=== PATIENT | female | born 1985 | race Caucasian/White ===

== ENCOUNTER 2020-02-12 15:49 | Emergency (ER) | payer OTHER, SELFPAY ==
--- NOTE | ~2020-02-12 | CT_ITS ---
EXAMINATION: CT abdomen pelvis w con DATE: 02/12/2020 18:26 INDICATION: Crohn's disease presenting with fatigue, fever, nausea, vomiting and lower abdominal pain . TECHNIQUE: Computed tomography (CT) of the abdomen and pelvis was performed . with 100 mL Omnipaque-3 50 intravenous contrast. Automated exposure control and iterative reconstruction technique were emplo yed. The dose-length product was 202.52 mGy-cm. COMPARISON: None FINDINGS: Lung bases are clear. Heart size is normal. No pericardial or pleural effusion. Liver, gallbladder, s pleen, pancreas, bilateral adrenal glands and kidneys are normal. Appendix is not visualized and ther e appears be a suture line at the tip of the cecum suggesting prior appendectomy. There is some edema tous wall thickening along the sigmoid colon and rectum consistent with distal colitis. No bowel obst ruction. No abscess or free intraperineal gas or fluid. Bladder, uterus and bilateral adnexa are unre markable. No pathologically enlarged abdominal or pelvic lymphadenopathy. Mild lumbar levocurvature. IMPRESSION: 1. Wall thickening along the sigmoid colon and rectum consistent with colitis most likely related to patient's known Crohn's disease with differential including infectious colitis or less likely ischemi a. Reviewed, dictated and finalized at location H. [facility] IMPRESSION: 1. Wall thickening along the sigmoid colon and rectum consistent with colitis m ost likely related to patient's known Crohn's disease with differential includi ng infectious colitis or less likely ischemia.
[2020-02-12 15:53] VITALS: BP 136/81; PULSE 105; RESP 16; TEMP 37.1; O2SAT 100
--- NOTE | 2020-02-12 16:15 | PC.NURSE ---
patient brought back to ED room 6 with c/o abdomen pain. see triage notes. this RN to room. advised patient we do need a urine specimen. specimen cup given. patient verbalized 3 times that she needs pain meds. assessments documented.
--- NOTE | 2020-02-12 16:40 | PC.NURSE ---
back on stretcher. refresh technician in room. labs drawn. UA collected. will run . alert. oriented. appears comfortable.
[2020-02-12 16:48] LABS: Basophils Absolute Auto 0.1 K/mm3 (0.0-0.1); Basophils Percent Auto 0.6 % (0.2-1.2); Eosinophils Absolute Auto 0.1 K/mm3 (0-0.3); Eosinophils Percent Auto 1.4 % (0-4.4); Hematocrit 46.9 % (37.0-47.0); Hemoglobin 15.6 g/dL (12.0-15.0); Immature Granulocyte Absolute 0.02 K/mm3 (0.00-0.031); Immature Granulocyte Percent A 0.2 % (0-0.5); Lymphocytes Absolute Auto 2.45 K/mm3 (0.9-3.2); Lymphocytes Percent Auto 26.4 % (18.3-44.2); Mean Corpuscular HGB Conc 33.3 g/dl (32-36); Mean Corpuscular Hemoglobin 31.3 pg (26-34); Mean Corpuscular Volume 94.2 fl (80-100); Mean Platelet Volume 9.3 fl (7.4-10.4); Monocytes Absolute Auto 0.6 K/mm3 (0.1-0.6); Monocytes Percent Auto 6.8 % (2.6-8.5); Neutrophils Percent Auto 64.6 % (45.5-73.1); Platelet Count Result 348 k/mm3 (150-375); Red Blood Count 4.98 M/mm3 (4.2-5.4); Red Cell Distribution Width 13.9 % (11.5-14.5); White Blood Count 9.3 K/mm3 (4.5-10.0)
[2020-02-12 16:52] LABS: Add Urine Microscopic? YES; Amorphous Sediment Urine Moderate; Appearance Urine Cloudy (Clear); Bilirubin Urine Negative (Negative); Blood Urine Negative (Negative); Color Urine Yellow (Yellow); Glucose Urine UA Negative (Negative); Ketones Urine Negative (Negative); Leukocyte Esterase Ur Negative LEU/UL (Negative); Mucus Urine Rare /lpf; Nitrate Urine Negative (Negative); Protein Urine Negative (Negative); RBC Urine 0-2 /hpf (0-2); Specific Grav Ur 1.017 (1.001-1.035); Squamous Epithelial Cell Urine Many /hpf (Few); Urobilinogen Urine Negative mg/dL (<2.0); WBC Urine 0-3 /hpf
[2020-02-12 17:07] LABS: Alanine Aminotransferase 20 U/L (4-35); Albumin Level 4.7 g/dL (3.5-5.1); Alkaline Phosphatase 63 U/L (38-126); Anion Gap 10 mmol/L (8-16); Aspartate Amino Transferase 22 U/L (14-36); Bilirubin,Total 0.9 mg/dL (0.2-1.3); Blood Urea Nitrogen 15 mg/dL (7-17); Calcium 9.6 mg/dL (8.4-10.2); Carbon Dioxide 27 mmol/L (22-30); Chloride 106 mmol/L (98-107); Estimated CRCL calculation 70 ml/min; Estimated Glomerular Filt Rate > 60; Glucose 66 mg/dL (65-105); Lipase 277 U/L (23-300); Potassium 3.9 mmol/L (3.4-5.0); Sodium 143 mmol/L (137-145)
--- NOTE | 2020-02-12 17:08 | ED.ABDPAIN ---
HPI - Abdominal Pain General Chief Complaint: Abdominal Pain <Migue Capellan - Last Filed: 02/12/20 17:09> Stated Complaint: N/V HX OF CHRONS' <Migue Capellan - Last Filed: 02/12/20 17:09> Time Seen by Provider: 02/12/20 16:06 <Migue Capellan - Last Filed: 02/12/20 17:09> Source: RN notes reviewed <Migue Capellan - Last Filed: 02/12/20 17:09> History of Present Illness HPI narrative: Patient presents emergency department from home for abdominal pain. Patient states symptoms began 2 days ago. Pain is located in the bilateral lower abdomen is described as sharp and stabbing does not radiate associate with nausea and without vomiting. Denies any diarrhea. States she has had a subjective fever with last fever 3 days ago. Patient does have a history of Crohn's disease but does not currently see any GI specialist and is on no medication. She denies any chest pain shortness of breath or any other symptoms <Migue Capellan Last Filed: 02/12/20 17:09> Related Data Allergies/Adverse Reactions: Allergies Allergy/AdvReac Type Severity Reaction Status Date / Time lactose Allergy Unknown Verified 04/03/18 21:43 <Migue Capellan Last Filed: 02/12/20 17:09> Review of Systems Review of Systems: Narrative: Gen.: Denies fevers or chills ENT: Denies congestion Respiratory: Denies shortness of breath or cough CV: Denies chest pain or palpitations GI: See HPI denies burning, urgency, frequency or hematuria Musculoskeletal: Denies back pain or muscle pain Neuro: Denies numbness, tingling, weakness or focal weakness Skin: Denies rash Except as documented, all other systems reviewed and negative <Migue Capellan DO - Last Filed: 02/12/20 17:09> PMFSH Past Medical History Medical History: Medical History (Updated 02/12/20 @ 20:22 by Thiago Dudley MD) Crohn's disease <Migue Capellan DO - Last Filed: 02/12/20 17:09> Social History Social History: Social History (Updated 02/12/20 @ 17:09 by Migue Capellan DO) Smoking status: Never smoker Gender identity (if verbalized by the patient): Female <Migue Capellan DO - Last Filed: 02/12/20 17:09> Exam Narrative: Exam Narrative: APPEARANCE: No acute distress, nontoxic, resting in bed HEENT: Normocephalic, atraumatic, OMM RESPIRATORY: No respiratory distress, clear to auscultation bilaterally with no rhonchi wheezing or rales CARDIOVASCULAR: RRR s murmur ABDOMINAL: Soft, nondistended, tender palpation right lower quadrant left lower quadrant no tenderness right upper quadrant left upper quadrant no rebound or guarding MUSCULOSKELETAl: Moves all extremities. No clubbing, cyanosis or edema. NEURO: Awake and alert. Following commands, speech normal, no focal deficits SKIN:: Warm, dry. Normal Color PSYCHIATRIC: Normal affect/mood <Migue Capellan DO - Last Filed: 02/12/20 17:09> Course Course Emergency Course: Patient is feeling better CT scan showed evidence of mild colitis patient will be started on Cipro and Flagyl as well as a short course of steroids. Patient was given information for follow-up with a primary care physician <Thiago Dudley MD - Last Filed: 02/12/20 20:28> Vital Signs Vital signs: Vital Signs Temperature 37.1 C 02/12/20 15:53 Pulse Rate 105 H 02/12/20 15:53 Respiratory Rate 16 02/12/20 15:53 Blood Pressure 136/81 02/12/20 15:53 Pulse Oximetry 100 02/12/20 15:53 Temperature 37.1 C 02/12/20 15:53 Pulse Rate 105 H 02/12/20 15:53 Respiratory Rate 16 02/12/20 15:53 Blood Pressure 136/81 02/12/20 15:53 Pulse Oximetry 100 02/12/20 15:53 <Migue Capellan DO - Last Filed: 02/12/20 17:09> Vital Signs Temperature 37.1 C 02/12/20 15:53 Pulse Rate 105 H 02/12/20 15:53 Respiratory Rate 16 02/12/20 15:53 Blood Pressure 136/81 02/12/20 15:53 Pulse Oximetry 100 02/12/20
[2020-02-12] MEDS: MORPHINE SULFATE (*CRX) 4 MG/ML INJ IV PUSH (17:32)
[2020-02-12] MEDS: ONDANSETRON INJ 4 MG/2 ML VIAL IV PUSH (17:32)
[2020-02-12] MEDS: SODIUM CHLORIDE 0.9% IV 1,000 ML 999 ML IV CONT (17:32)
--- NOTE | 2020-02-12 19:35 | PC.NURSE ---
resting on stretcher. watching TV. ice chips given. wants more pain meds. all tests resulted. waiting for further orders from provider. has call light in reach.
[2020-02-12 20:47] VITALS: BP 136/82; PULSE 82; RESP 16; O2SAT 98
== END 2020-02-12 20:48 | disposition home or self-care (01) ==
PROVIDERS: Emergency Provider Emergency Medicine
DX: K52.9 Noninfective gastroenteritis and colitis, unspecified (principal); K50.90 Crohn's disease, unspecified, without complications
CPT/HCPCS: 36415; 74177; 80053; 81001; 81025; 83690; 85025; 96361; 96374; 96375; 99284; J2270; J2405; J7030; Q9967

== ENCOUNTER 2021-06-17 05:54 | Inpatient (IN) | payer OTHER, SELFPAY ==
--- NOTE | ~2021-06-17 | MR_ITS ---
EXAMINATION: MR brain/brain stem wo/w con EXAM DATE: 06/17/2021 16:30 INDICATION: Seizure. TECHNIQUE: Magnetic resonance imaging (MRI) of the brain/brain stem obtained without contrast. Sagit amor T1, axial diffusion, gradient echo (T2*), T1, T2, FLAIR sequences obtained. Patient was then inj ected with 10 cc intravenous Multihance contrast. Seizure protocol was utilized including high-resolu tion coronal images through the hippocampi. Axial postcontrast T1 weighted sequences obtained. Patie nt vomited after contrast injection; coronal post contrast images not obtained. Correlation was made with head CT from earlier same date. FINDINGS: The hippocampi are symmetric and are without signal abnormality identified. There are no g ray matter heterotopias identified or evidence of cortical dysplasia. There are no areas of restricted diffusion to suggest acute infarction. There is no acute hemorrhage seen on the T2*, a hemosiderin sensitive sequence. No intraparenchymal brain mass. The ventricles a re normal in size. There are no extra-axial collections. Flow voids are seen in the cerebral arteri es on the T2-weighted sequences consistent with their expected patency. The orbits are unremarkable. Soft tissue is unremarkable. IMPRESSION: Unremarkable brain MRI examination. Reviewed, dictated and finalized at location G.
--- NOTE | ~2021-06-17 | CT_ITS ---
EXAMINATION: CT cervical spine wo con DATE: 06/17/2021 07:02 INDICATION: Neck pain after seizure TECHNIQUE: Computed tomography (CT) of the cervical spine was performed without intravenous contrast. The dose-length product was 145 mGy-cm. Automated exposure control and iterative reconstruction tech [employer] were employed. COMPARISON: No prior studies for comparison. FINDINGS: No acute fracture, subluxation or dislocation. Normal cervical alignment. Vertebral body an d disc heights are preserved. Craniovertebral junction is normal. No evidence for perched facet. Spin ous processes are normal. No significant paraspinal soft tissue abnormality. IMPRESSION: 1. No acute abnormality of the cervical spine. Reviewed, dictated and finalized at location A.
--- NOTE | ~2021-06-17 | XR_ITS ---
XR abdomen NG/feed tube insert DATE: 06/18/2021 02:44 INDICATION: Evaluate NG tube position TECHNIQUE: Portable AP view on 06/18/2021 at 0235 hours COMPARISON: None FINDINGS: NG tube coiled once in stomach, distal tip directed toward the esophagogastric junction, th e proximal side-port 16 cm beyond the diaphragmatic hiatus. Nonspecific bowel gas pattern. No intraperitoneal free air is evident. The lung bases are clear. Heart size appears normal. IMPRESSION: NG tube in stomach Reviewed, dictated and finalized at Location A. Reviewed, dictated and finalized at location A. IMPRESSION: NG tube in stomach
--- NOTE | ~2021-06-17 | CT_ITS ---
EXAMINATION: CT abdomen pelvis w con EXAM DATE: 06/17/2021 15:38 INDICATION: Crohn's disease. TECHNIQUE: Spiral CT of the abdomen and pelvis was performed following intravenous injection of 100 m L Omnipaque 350. Axial, coronal and sagittal images of the abdomen and pelvis were reviewed. The do se-length product (DLP) for this examination was 228.52 mGy-cm. The exposure was tailored according to patient size (auto mA exposure control), and iterative reconstruction (ASIR) was used as additiona l dose reduction technique. There is no prior study for comparison. FINDINGS: There is moderately distended stomach with large amount of fluid. The duodenum is severely distended and there is moderately distended jejunum without wall thickening or pneumatosis. The ileum is normal in caliber and unremarkable. No definite discrete transition point, appearance suggests il eus. No evidence of appendicitis. The liver, spleen, adrenal glands and pancreas are unremarkable. Gallbladder is unremarkable. No bi liary obstruction. Portal and splenic veins are patent. Kidneys enhance symmetrically. There is no hydronephrosis. The uterus and ovaries are unremarkable, no adnexal mass. The bladder is distende d but otherwise unremarkable. There is no retroperitoneal or pelvic lymphadenopathy. The heart is n ormal in size. There are no pericardial or pleural effusions. The lung bases are unremarkable. The bones are unremarkable. IMPRESSION: Distended stomach, duodenum and jejunum without discrete transition point. Appearance sug gests ileus. Unremarkable ileum. Expected amount of colonic stool. Reviewed, dictated and finalized at location G. IMPRESSION: Distended stomach, duodenum and jejunum without discrete transition point. Appearance suggests ileus. Unremarkable ileum. Expected amount of colon ic stool.
--- NOTE | ~2021-06-17 | CT_ITS ---
EXAMINATION: CT BRAIN W/O DATE: 06/17/2021 07:02 INDICATION: Seizure. TECHNIQUE: Computed tomography (CT) of the head was performed without intravenous contrast. The dose- length product was 605.33 mGy-cm. Automated exposure control and iterative reconstruction technique w ere employed. COMPARISON: No prior studies for comparison. FINDINGS: Normal brain parenchymal volume for age. Normal bishop-white differentiation. No acute intrac ranial hemorrhage, infarction, mass or mass effect. No ventriculomegaly or midline shift. Midline sagittal images demonstrate a normal corpus callosum, c raniovertebral junction and sella turcica. Basilar cisterns are patent. Paranasal sinuses and mastoids are pneumatized. No depressed skull fractures. IMPRESSION: 1. No acute intracranial abnormality. Reviewed, dictated and finalized at location A.
--- NOTE | ~2021-06-17 | XR_ITS ---
EXAMINATION: XR chest 1V portable 06/17/2021 08:19 INDICATION: Multiple seizures PROCEDURE: AP portable chest COMPARISON: No prior studies for comparison. FINDINGS: The lungs are clear. The cardiomediastinal silhouette is within normal limits. There are no pleural effusions. There is no pneumothorax suspected. IMPRESSION: 1: NO ACUTE CARDIOPULMONARY DISEASE. Reviewed, dictated and finalized at location A.
--- NOTE | ~2021-06-17 | XR_ITS ---
EXAMINATION: XR sm bowel follow through DATE: 06/19/2021 11:02 INDICATION: Abdominal pain, nausea and vomiting TECHNIQUE: Tool Mechanic radiograph(s) of the abdomen was/were obtained. Oral contrast was administered, and sequential radiographs of the abdomen were obtained until oral contrast was noted to be in the proxi mal colon. Spot fluoroscopic images of the small bowel were obtained. Fluoroscopy exposure time was 0 .6 minutes. Total of 3 overhead radiographs and 7 fluoroscopic spot images were recorded. COMPARISON: CT dated 06/17/2021 and 02/12/2020 FINDINGS: Transit time from the stomach to proximal colon was approximately 3 minutes. There is dilation of the duodenum which extends to the midline there is transition to normal caliber. There is normal caliber and mucosal fold pattern throughout the more distal small bowel. Terminal ileum is normal. IMPRESSION: 1. Dilation of the duodenum with transition point as evidenced on CT at the midline where it passes b etween the aorta and superior mesenteric artery without delayed passage of contrast suggesting possib le SMA syndrome with chronic low grade obstruction. Reviewed, dictated and finalized at location A. IMPRESSION: 1. Dilation of the duodenum with transition point as evidenced on CT at the mid line where it passes between the aorta and superior mesenteric artery without d elayed passage of contrast suggesting possible SMA syndrome with chronic low gr sona obstruction.
[2021-06-17 06:02] VITALS: BP 119/81; PULSE 72; RESP 16; TEMP 36.6; O2SAT 99
[2021-06-17 06:11] VITALS: PULSE 72; O2SAT 99
[2021-06-17 06:12] VITALS: O2SAT 99
--- NOTE | 2021-06-17 06:43 | PC.NURSE ---
patient refused test.
[2021-06-17 06:46] LABS: Basophils Absolute Auto 0.1 K/mm3 (0.0-0.1); Basophils Percent Auto 0.7 % (0.2-1.2); Hematocrit 47.4 % (37.0-47.0); Hemoglobin 16.4 g/dL (12.0-15.0); Immature Granulocyte Absolute 0.02 K/mm3 (0.00-0.031); Immature Granulocyte Percent A 0.2 % (0-0.5); Lymphocytes Absolute Auto 3.12 K/mm3 (0.9-3.2); Lymphocytes Percent Auto 33.8 % (18.3-44.2); Mean Corpuscular HGB Conc 34.6 g/dl (32-36); Mean Corpuscular Hemoglobin 30.7 pg (26-34); Mean Corpuscular Volume 88.6 fl (80-100); Mean Platelet Volume 9.4 fl (7.4-10.4); Monocytes Absolute Auto 0.6 K/mm3 (0.1-0.6); Monocytes Percent Auto 6.9 % (2.6-8.5); Neutrophils Absolute Auto 5.4 K/mm3 (1.3-6.7); Neutrophils Percent Auto 58.4 % (45.5-73.1); Platelet Count Result 375 k/mm3 (150-375); Red Blood Count 5.35 M/mm3 (4.2-5.4); Red Cell Distribution Width 13.4 % (11.5-14.5); White Blood Count 9.2 K/mm3 (4.5-10.0)
--- NOTE | 2021-06-17 06:47 | PC.NURSE ---
Patient went to CT scan at this time.
[2021-06-17 06:58] LABS: Alanine Aminotransferase 16 U/L (4-35); Albumin Level 5.1 g/dL (3.5-5.1); Alkaline Phosphatase 75 U/L (38-126); Anion Gap 13 mmol/L (8-16); Aspartate Amino Transferase 30 U/L (14-36); Bilirubin,Total 1.6 mg/dL (0.2-1.3); Blood Urea Nitrogen 17 mg/dL (7-17); Calcium 9.7 mg/dL (8.4-10.2); Carbon Dioxide 29 mmol/L (22-30); Chloride 102 mmol/L (98-107); Estimated Glomerular Filt Rate > 60; Glucose 117 mg/dL (65-110); Potassium 3.4 mmol/L (3.4-5.0); Sodium 144 mmol/L (137-145)
--- NOTE | 2021-06-17 07:32 | ED.SEIZURE ---
HPI - Seizure General Chief Complaint: Seizure Stated Complaint: multiple seizures Time Seen by Provider: 06/17/21 06:21 Source: patient Mode of arrival: EMS Limitations: no limitations History of Present Illness HPI Narrative: Patient is a 35-year-old female complaining of multiple seizure at home that started last night. Patient states that she did hit her head on the floor when she had her seizure. Patient also complaining of neck pain, mild, dull, aching, worse with movement. Patient states that she has been off her seizure medication for quite some time because I cannot afford it . But patient admits to having Medicaid but now states that she does not have a ride to get to the pharmacy. Patient admits to smoking and ask how she gets her cigarettes, she claims that my dad gets it for me , I asked why her father cannot take her to the pharmacy or pick it up for her to get her seizure medication, and her reply is it is complicated . Patient also complaining of nausea. Patient denies any chest pain, shortness of breath, abdominal pain, back pain, or any extremity pain/injury. Related Data Allergies Allergy/AdvReac Type Severity Reaction Status Date / Time lactose Allergy Unknown Verified 04/03/18 21:43 Review of Systems Review of Systems: All systems reviewed & are unremarkable except as noted in HPI and below Constitutional: Constitutional: Denies body ache(s), Denies chills, Denies excessive sweating, Denies fatigue, Denies fever(s), Denies headache(s), Denies lethargy, Denies malaise, Denies weakness and Denies weight loss Eyes: Eyes: Denies blurry vision, Denies change in vision and Denies loss of vision ENT: Denies dizziness, Denies ear discharge, Denies headache(s), Denies lip swelling, Denies epistaxis, Denies nasal congestion, Denies throat swelling and Denies tongue swelling Cardiovascular: Cardiovascular: Denies chest pain, Denies chest pain at rest, Denies chest pain with activity, Denies diaphoresis, Denies rapid heart rate, Denies edema, Denies irregular heart rhythm, Denies lightheadedness, Denies palpitations, Denies dyspnea and Denies dyspnea on exertion Respiratory: Respiratory: Denies chest congestion, Denies cough, Denies hemoptysis, Denies dyspnea and Denies dyspnea on exertion Gastrointestinal: Gastrointestinal: Denies abdominal pain, Denies melena, Denies hematochezia, Denies diarrhea and Denies hematemesis Musculoskeletal: Musculoskeletal: Denies abnormal gait, Denies deformity, Denies joint swelling, Denies limited range of motion, Denies neck pain and Denies numbness Neurologic: Denies Abnormal speech present, Denies abnormal gait, Denies confusion, Denies dizziness, Denies focal weakness, Denies loss of vision, Denies numbness, Denies Other visual disturbances, Denies Sensory deficit (Neuro) and Denies weakness Psychiatric: Psychiatric: Denies confusion, Denies depression, Denies auditory hallucinations, Denies homicidal ideation and Denies suicidal ideation Endocrine: Endocrine: Denies cold intolerance, Denies excessive sweating, Denies fatigue, Denies heat intolerance and Denies palpitations Hematologic/Lymphatic: Hematologic/Lymphatic: Denies easy bleeding and Denies easy bruising Allergic/Immunologic: Allergic/Immunologic: Denies lip swelling, Denies throat swelling and Denies tongue swelling PMF Past Medical History Medical History (Updated 06/17/21 @ 07:46 by Migue Cook MD) Crohn's disease Social History Social History (Updated 02/12/20 @ 17:09 by Migue Capellan DO) Smoking status: Never smoker Gender identity (if verbalized by the patient): Female Comments Past medical history: Seizure Exam Const: General: cooperative, healthy appearing, comfortable, no acute distress, well developed, alert and awake; No confusion Orientation/consciousness: oriented to person, oriented to place, oriented to time, patient oriented x3 and No confusion Limitations: no limitations H
[2021-06-17] MEDS: SODIUM CHLORIDE 0.9% IV 1,000 ML 999 ML IV CONT (07:58)
[2021-06-17] MEDS: levETIRAcetam 1000MG/NACL100ML 1,000 MG/100 ML BAG 400 MG IVPB (07:58)
[2021-06-17] MEDS: PROMETHAZINE HCL 25 MG/ML AMPUL 12.5 MG IV PUSH (07:58)
[2021-06-17 08:53] LABS: SARS-CoV-2 RNA PCR Negative
[2021-06-17 10:21] VITALS: BMI 20.1
[2021-06-17] MEDS: ONDANSETRON INJ 4 MG/2 ML VIAL IV PUSH ×2 (12:53→23:17)
[2021-06-17] MEDS: LACTATED RINGERS 1,000 ML 125 ML IV CONT (12:54)
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
[2021-06-17 13:10] VITALS: BP 119/73; PULSE 60; RESP 20; TEMP 36.6; O2SAT 100
[2021-06-17 14:20] LABS: Bilirubin Indirect 1.7 mg/dL (0-1.1); CRP < 0.5 mg/dL (<1.0)
[2021-06-17 14:32] LABS: Beta HCG Quantitative < 2.39 mIU/ML
[2021-06-17 14:36] LABS: Erythrocyte Sedimentation Rate 5 mm/hr (0-20)
[2021-06-17 14:56] LABS: HIV 1/2 Ab P24 Ag Result Negative (Negative)
[2021-06-17 15:02] LABS: HAV RESULT Negative (Negative); Hepatitis B Core IgM Result Negative (Negative)
[2021-06-17 15:13] LABS: Hepatitis C Virus Antibody Negative (Negative)
[2021-06-17 16:44] LABS: Hepatitis B Surface Antigen 0.95 S/C
[2021-06-17 16:45] LABS: Hepatitis B Surface Antigen Negative (Negative)
[2021-06-17] MEDS: IBUPROFEN 600 MG TABLET PO (16:48)
[2021-06-17 17:26] LABS: Add Urine Microscopic? YES; Appearance Urine Cloudy (Clear); Bacteria Urine Trace /hpf; Bilirubin Urine Negative (Negative); Blood Urine Negative (Negative); Color Urine Yellow (Yellow); Glucose Urine UA Negative (Negative); Ketones Urine Trace mg/dL (Negative); Leukocyte Esterase Ur Negative LEU/UL (Negative); Mucus Urine Rare /lpf; Nitrate Urine Negative (Negative); Protein Urine 1+ mg/dL (Negative); RBC Urine 21-50 /hpf (0-2); Squamous Epithelial Cell Urine Few /hpf (Few); Urobilinogen Urine Negative mg/dL (<2.0); WBC Urine 0-3 /hpf
[2021-06-17 17:28] LABS: Specific Grav Ur 1.057 (1.001-1.035)
[2021-06-17 17:54] LABS: Barbiturate Screen Urine Negative (Negative); Benzodiazepines Screen Urine Negative (Negative)
[2021-06-17 17:59] LABS: Amphetamine Screen Urine Negative (Negative); Cannabinoid Screen Urine Negative (Negative); Cocaine Screen Urine Negative (Negative); Methadone Screen Urine Negative (Negative); Opiate Screen Urine Negative (Negative); Phencyclidine Screen Urine Negative (Negative)
[2021-06-17] MEDS: PANTOPRAZOLE SODIUM IV 40 MG VIAL IV PUSH (20:30)
[2021-06-17] MEDS: diphenhydrAMINE HCl INJ 50 MG/ML VIAL 25 MG IV PUSH (20:30)
[2021-06-17] MEDS: LORazepam INJ (*CRX) 2 MG/ML VIAL 0.5 MG IV PUSH (20:34)
[2021-06-17] MEDS: levETIRAcetam 500MG/NACL 100ML 500 MG/100 ML BAG 400 MG IVPB (20:34)
[2021-06-17 21:18] VITALS: O2SAT 98
[2021-06-17 21:31] VITALS: BP 124/76; PULSE 57; RESP 16; TEMP 36.8; O2SAT 100
[2021-06-17] MEDS: ACETAMINOPHEN 325 MG TABLET 650 MG PO (23:16)
[2021-06-18] MEDS: LACTATED RINGERS 1,000 ML 125 ML IV CONT ×4 (00:08→17:00)
[2021-06-18] MEDS: MORPHINE SULFATE (*CRX) 2 MG/ML INJ IV PUSH (01:19)
[2021-06-18] MEDS: LORazepam INJ (*CRX) 2 MG/ML VIAL 0.5 MG IV PUSH ×3 (03:00→20:50)
[2021-06-18 05:54] VITALS: BP 115/74; PULSE 67; RESP 16; TEMP 36.6; O2SAT 100
[2021-06-18 06:32] LABS: Alanine Aminotransferase 11 U/L (4-35); Albumin Level 4.1 g/dL (3.5-5.1); Alkaline Phosphatase 53 U/L (38-126); Anion Gap 6 mmol/L (8-16); Aspartate Amino Transferase 18 U/L (14-36); Bilirubin,Total 1.9 mg/dL (0.2-1.3); Blood Urea Nitrogen 18 mg/dL (7-17); Calcium 8.3 mg/dL (8.4-10.2); Carbon Dioxide 28 mmol/L (22-30); Chloride 108 mmol/L (98-107); Estimated CRCL calculation 88 ml/min; Estimated Glomerular Filt Rate > 60; Glucose 102 mg/dL (65-110); Potassium 3.4 mmol/L (3.4-5.0); Sodium 142 mmol/L (137-145)
[2021-06-18 06:43] LABS: Basophils Absolute Auto 0.1 K/mm3 (0.0-0.1); Basophils Percent Auto 0.4 % (0.2-1.2); Hematocrit 39.8 % (37.0-47.0); Hemoglobin 13.6 g/dL (12.0-15.0); Immature Granulocyte Absolute 0.05 K/mm3 (0.00-0.031); Immature Granulocyte Percent A 0.4 % (0-0.5); Lymphocytes Absolute Auto 4.87 K/mm3 (0.9-3.2); Lymphocytes Percent Auto 35.1 % (18.3-44.2); Mean Corpuscular HGB Conc 34.2 g/dl (32-36); Mean Corpuscular Hemoglobin 30.9 pg (26-34); Mean Corpuscular Volume 90.5 fl (80-100); Mean Platelet Volume 10.1 fl (7.4-10.4); Monocytes Absolute Auto 0.9 K/mm3 (0.1-0.6); Monocytes Percent Auto 6.6 % (2.6-8.5); Neutrophils Percent Auto 57.5 % (45.5-73.1); Platelet Count Result 315 k/mm3 (150-375); Red Cell Distribution Width 13.6 % (11.5-14.5); White Blood Count 13.9 K/mm3 (4.5-10.0)
[2021-06-18 06:57] LABS: Thyroid Stimulating Hormone Reflex 0.981 uIU/mL (0.465-4.68)
[2021-06-18 08:33] LABS: Rapid Plasma Reagin Non-Reactive (NonReactive)
[2021-06-18] MEDS: PANTOPRAZOLE SODIUM IV 40 MG VIAL IV PUSH ×2 (09:37→20:51)
[2021-06-18] MEDS: levETIRAcetam 500MG/NACL 100ML 500 MG/100 ML BAG 400 MG IVPB ×2 (09:37→20:52)
--- NOTE | 2021-06-18 12:04 | P.NEURO_ITS ---
Neurology EEG Report General Information Date of Study: 06/18/21 TEST eeg DIAGNOSIS seizures CONDITION OF RECORDING awake drowsy and sleep EEG NUMBER [id number] CLINICAL HISTORY patient unable to give much history other than she lost consciousness EEG DESCRIPTION basic resting occipital frequency consists of medium voltage 10 to 11 hertz per 2nd alpha admixed with low-voltage 15 to 18 hertz per 2nd beta activity. Low- voltage beta activity seen diffusely during drowsiness admixed with waxing and waning posterior alpha rhythm. Bilateral symmetrical sleep activity seen during sleep. Hyperventilation not done. Photic stimulation not done. Non paroxysmal. Nonfocal. Nonlateralizing. IMPRESSION Normal record
[2021-06-18 12:15] VITALS: BMI 20.1
[2021-06-18] MEDS: ONDANSETRON INJ 4 MG/2 ML VIAL IV PUSH ×3 (13:00→20:50)
--- NOTE | 2021-06-18 13:39 | PM.IMPN ---
Progress Note: A&P Assessment and Plan (1) Generalized seizure: Code(s): R56.9 - Unspecified convulsions Status: Acute Assessment and Plan: Patient presumably has seizure disorder although not documented prior to this admission. She was last seen here in the ED on January 2020 and no mention of seizures in her history. She was loaded on Keppra here. UPT and UDS negative. Brain MRI normal. EEG normal. HIV and Hepatitis panel negative. Will continue IV Keppra given her nausea and vomiting. Neurology consulted. Continue Seizure precautions. (2) Nausea & vomiting: Code(s): R11.2 - Nausea with vomiting, unspecified Status: Acute Assessment and Plan: Patient is having nausea and vomiting as noted in the room with yellowish emesis. Zofran is available as needed. She has a history of Crohn's disease. CT scan showing dilated stomach, duodenum and jejunum without discrete transition point. NGT was placed but now out. Consider Crohns flare in the small bowel. Continue Zofran as needed. Continue NPO. Continue IV fluids. GI consulted and appreciate their input. (3) Crohn's disease: Code(s): K50.90 - Crohn's disease, unspecified, without complications Status: Acute Assessment and Plan: Patient presumably with a history of Crohn's disease. She did have a CT of the abdomen pelvis in January 2020 which was consistent with colitis. CT abdomen pelvis as mentioned above. CRP normal. Stricture in the small bowel? GI consult. (4) Tobacco abuse: Code(s): Z72.0 - Tobacco use Status: Acute Assessment and Plan: Patient was congratulated on her ability to cut down her tobacco use. She was also congratulated on staying drug free for the past 4 years. HIV, RPR and hepatitis panel negative. Limit narcotic use (5) DVT prophylaxis: Code(s): Z29.9 - Encounter for prophylactic measures, unspecified Status: Acute Assessment and Plan: SCDs Additional Plan Add contrast to her allergy list. Hyperbili - All indirect. 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 Subjective Date/time seen: 06/18/21 13:39 Interval history: 35yo female with Crohn's disease and seizure disorder who presents with recurrent seizures. Patient noted to have dilated stomach by CT scan yesterday and NG tube was placed. Patient removed the NG this morning. She is complaining of neck pain. No seizures since admission. Also was having pain in the throat related to the NG tube. She did have a rash after she returned from the CT scan that was given with contrast. This was treated with Benadryl. There were no respiratory symptoms or tongue swelling. Exam Narrative: AF 97.9 115/74 67 16 100% ra Gen - NARD Chest - CTA bilaterally, nml RR CV - RRR S1/S2 Abd - Soft, NT/ND, Positive BS Ext - No pedal edema Psych - Nml mood and affect Skin - Warm and dry. No rash Objective Data Vital Signs Vital Signs: Vital Signs - 24 hr 06/17/21 21:18 06/17/21 21:31 06/18/21 05:54 Temperature 98.2 F 97.9 F Pulse Rate 57 L 67 Respiratory Rate 16 16 Blood Pressure 124/76 115/74 Pulse Oximetry 98 100 100 Intake/Output Intake/Output: Intake & Output 06/15/21 06/16/21 06/17/21 06/18/21 23:59 23:59 23:59 23:59 Intake Total 375 2100 Output Total 1050 680 Balance -675 1420 Meds/Results Medications: Active Medications Generic Name Dose Route Start Last Admin Trade Name Freq PRN Reason Stop Dose Admin Acetaminophen 650 mg 06/17/21 11:10 06/17/21 23:16 Acetaminophen 325 Mg Tablet PO 650 mg Q6H PRN Administration Mild Pain (1-3) or Fever Diphenhydramine HCl 25 mg 06/17/21 18:41 06/17/21 20:30 Diphenhydramine Hcl Inj 50 Mg/Ml Vial IV PUSH 25 mg Q6HR PRN Administration Itching Lactated Ringer's 1,000 mls @ 125 mls/hr 06/17/21 07:40 06/18/21 07:07 Lr - Lactated Ringers Iv IV CONT 125 mls/hr .Q8H RYAN Administration Levet
[2021-06-18 14:00] VITALS: BP 112/69; PULSE 63; RESP 18; TEMP 36.7; O2SAT 100
[2021-06-18 14:05] VITALS: O2SAT 98
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
--- NOTE | 2021-06-18 15:28 | WPDGICN ---
Assessment and Plan Assessment and plan (1) Nausea & vomiting: Code(s): R11.2 - Nausea with vomiting, unspecified Status: Acute Assessment and Plan: I do not even know if she has Crohn's- she says that ER doctor made the diagnosis few years ago. will get small bowel follow through, if normal then ok to advance diet continue with antiemetics if still symptomatic we can evaluate with EGD on Monday (2) Ileus: Code(s): K56.7 - Ileus, unspecified Status: Acute Assessment and Plan: will get SBFT, no obvious transition point we can do a colonoscopy as outpatient, I doubt that she has Crohn's (3) Generalized seizure: Code(s): R56.9 - Unspecified convulsions Status: Acute Assessment and Plan: neurology on board and started on keppra (4) Non-compliance: Code(s): Z91.19 - Patient's noncompliance with other medical treatment and regimen Status: Acute GI Consult Note Consult date/time: 06/18/21 15:28 Reason for consult: nausea and vomiting HPI: Inocencia Snowden is a 35 year old female with history of seizures for 5-6 years but lately has been off her medications because can not afford it, she is also poor historian. She also says that was diagnosed with Crohn's disease by ER doctor about 4-5 years ago- she thinks that had a colonoscopy in this hospital but I could not find any records and it seems that she does not have a GI doctor either and as far as I can tell she has not been on medication for Crohn's. She is been admitted after she had multiple seizures at home, apparently no obvious head trauma but mentioned that she did hit her head when she was on the floor. Also 2 days of nausea and vomiting for the past 2 days. She has not had BM for 3 days, says that normally will use restroom daily, complaining of abdominal discomfort. CT scan a/p reviewed and showed distended stomach, duodenum and jejunum without discrete transition point, possible ileus. Unremarkable ileum. NGT was placed briefly but now removed, she is having ice chips. Inflammatory marker normal. Review of Systems Constitutional: Constitutional: Reports chills Eyes: Eyes: Denies blurry vision ENT: Reports Normal hearing present Cardiovascular: Cardiovascular: Denies chest pain Respiratory: Respiratory: Denies dyspnea Gastrointestinal: Gastrointestinal: Reports abdominal pain, Reports nausea and Reports vomiting Genitourinary: Genitourinary: Denies flank pain Musculoskeletal: Musculoskeletal: Denies neck pain Integumentary/Breasts: Skin/Breast: Denies dry skin Neurologic: Comments: seizures Psychiatric: Psychiatric: Reports anxiety [facility] Past Medical History Medical History (Updated 06/18/21 @ 15:37 by Darrell Reyes MD) Chronic low back pain Crohn's disease Depression History of cervical cancer Treated with LEEP around 1999 Ileus Migraines Non-compliance Seizure disorder Surgical History Surgical History History of appendectomy Family History Family History Mother Alcoholism Other Breast cancer Social History Social History Social History: Patient has smoked for about 20 years up to 2 packs per day. She is currently down to 2 cigarettes a day. She has access to food and food is delivered to her. She lives alone. She denies alcohol or drug use. 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 She is a full code. She dominated her father to be the individual would make medical decisions for her if she is unable Smoking status: Current every day smoker Tobacco type: cigarettes Alcohol intake: never Substance use: never Substance use type: does not use Gender identity (if verbalized by the patient): Female Spiritual care concerns: No Meds Home Medications and Allergies Home Med
[2021-06-18] MEDS: NICOTINE (*PBKC) 14 MG PATCH 1 PATCH TRANSDERM (15:47)
[2021-06-18] MEDS: predniSONE 40 MG, predniSONE 10 MG 50 MG PO (18:44)
[2021-06-18 20:00] VITALS: PULSE 71; RESP 16; O2SAT 99
[2021-06-18 22:00] VITALS: BP 119/68; PULSE 71; RESP 16; TEMP 36.3; O2SAT 99
[2021-06-19] MEDS: predniSONE 40 MG, predniSONE 10 MG 50 MG PO ×2 (00:01→05:02)
[2021-06-19] MEDS: MORPHINE SULFATE (*CRX) 4 MG/ML INJ IV PUSH (03:10)
[2021-06-19] MEDS: ONDANSETRON INJ 4 MG/2 ML VIAL IV PUSH ×2 (03:15→09:09)
[2021-06-19] MEDS: LORazepam INJ (*CRX) 2 MG/ML VIAL 0.5 MG IV PUSH ×2 (05:00→11:17)
[2021-06-19 06:00] VITALS: BP 115/63; PULSE 77; RESP 18; TEMP 36.1; O2SAT 99
[2021-06-19 07:16] LABS: Hematocrit 38.7 % (37.0-47.0); Hemoglobin 12.9 g/dL (12.0-15.0); Immature Granulocyte Absolute 0.01 K/mm3 (0.00-0.031); Immature Granulocyte Percent A 0.1 % (0-0.5); Lymphocytes Absolute Auto 1.72 K/mm3 (0.9-3.2); Lymphocytes Percent Auto 21.8 % (18.3-44.2); Mean Corpuscular HGB Conc 33.3 g/dl (32-36); Mean Corpuscular Hemoglobin 30.6 pg (26-34); Mean Corpuscular Volume 91.9 fl (80-100); Mean Platelet Volume 9.9 fl (7.4-10.4); Monocytes Absolute Auto 0.1 K/mm3 (0.1-0.6); Monocytes Percent Auto 1.1 % (2.6-8.5); Neutrophils Absolute Auto 6.1 K/mm3 (1.3-6.7); Platelet Count Result 255 k/mm3 (150-375); Red Blood Count 4.21 M/mm3 (4.2-5.4); Red Cell Distribution Width 13.5 % (11.5-14.5); White Blood Count 7.9 K/mm3 (4.5-10.0)
[2021-06-19 07:34] LABS: Albumin Level 3.9 g/dL (3.5-5.1); Anion Gap 9 mmol/L (8-16); Blood Urea Nitrogen 13 mg/dL (7-17); Calcium 8.6 mg/dL (8.4-10.2); Carbon Dioxide 22 mmol/L (22-30); Chloride 106 mmol/L (98-107); Estimated CRCL calculation 104 ml/min; Estimated Glomerular Filt Rate > 60; Glucose 124 mg/dL (65-110); Phosphorus 3.9 mg/dL (2.5-4.5); Potassium 3.8 mmol/L (3.4-5.0); Sodium 137 mmol/L (137-145)
[2021-06-19 08:00] VITALS: PULSE 77; RESP 18; O2SAT 99
[2021-06-19] MEDS: levETIRAcetam 500MG/NACL 100ML 500 MG/100 ML BAG 400 MG IVPB (09:01)
[2021-06-19] MEDS: PANTOPRAZOLE SODIUM IV 40 MG VIAL IV PUSH (09:02)
[2021-06-19] MEDS: diphenhydrAMINE HCl INJ 50 MG/ML VIAL IV PUSH (09:02)
--- NOTE | 2021-06-19 10:34 | PM.IMPN ---
Progress Note: A&P Assessment and Plan (1) Generalized seizure: Code(s): R56.9 - Unspecified convulsions Status: Acute Assessment and Plan: Patient presumably has seizure disorder although not documented prior to this admission. She was last seen here in the ED on January 2020 and no mention of seizures in her history. She was loaded on Keppra here. UPT and UDS negative. Brain MRI normal. EEG normal. HIV and Hepatitis panel negative. Will continue IV Keppra given her nausea and vomiting. Neurology consulted. Continue Seizure precautions. Improved (2) Nausea & vomiting: Code(s): R11.2 - Nausea with vomiting, unspecified Status: Acute Assessment and Plan: Patient is having nausea and vomiting as noted in the room with yellowish emesis. Zofran is available as needed. She has a history of Crohn's disease. CT scan showing dilated stomach, duodenum and jejunum without discrete transition point. NGT was placed but Consider Crohns flare in the small bowel. Continue Zofran as needed. GI consulted small-bowel follow-through on 06/19/2021 and colonoscopy as outpatient if patient continued to have symptoms plan for EGD on Monday (3) Crohn's disease: Code(s): K50.90 - Crohn's disease, unspecified, without complications Status: Acute Assessment and Plan: Patient presumably with a history of Crohn's disease. She did have a CT of the abdomen pelvis in January 2020 which was consistent with colitis. CT abdomen pelvis as mentioned above. CRP normal. Possible plan for colonoscopy as outpatient and EGD on Monday (4) Tobacco abuse: Code(s): Z72.0 - Tobacco use Status: Acute Assessment and Plan: Patient was congratulated on her ability to cut down her tobacco use. She was also congratulated on staying drug free for the past 4 years. HIV, RPR and hepatitis panel negative. Limit narcotic use (5) DVT prophylaxis: Code(s): Z29.9 - Encounter for prophylactic measures, unspecified Status: Acute Assessment and Plan: SCDs Additional Plan Add contrast to her allergy list. Hyperbili - All indirect. 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 Follow-up with GI as outpatient Subjective Date/time seen: 06/19/21 10:34 Interval history: 35yo female with Crohn's disease and seizure disorder who presents with recurrent seizures. Patient noted to have dilated stomach by CT scan and NG tube was placed. She did have a rash after she returned from the CT scan that was given with contrast. This was treated with Benadryl. There were no respiratory symptoms or tongue swelling Patient still complaining of abdominal pain and nausea small-bowel follow-through was ordered by GI possible EGD on Monday Patient denies fever headache chest pain shortness of breath I am seeing the patient for abdominal pain Exam Narrative: Alert Chest no wheeze crackles Abdomen nontender mildly distended CVS S1 + S2 Lower extremity negative edema Objective Data Vital Signs Vital Signs: Vital Signs - 24 hr 06/18/21 14:00 06/18/21 14:05 06/18/21 20:00 Temperature 98.0 F Pulse Rate 63 71 Respiratory Rate 18 16 Blood Pressure 112/69 Pulse Oximetry 100 98 99 06/18/21 22:00 06/19/21 06:00 06/19/21 08:00 Temperature 97.3 F L 97 F L Pulse Rate 71 77 77 Respiratory Rate 16 18 18 Blood Pressure 119/68 115/63 Pulse Oximetry 99 99 99 Intake/Output Intake/Output: Intake & Output 06/16/21 06/17/21 06/18/21 06/19/21 23:59 23:59 23:59 23:59 Intake Total 375 4500 1000 Output Total 1050 1280 Balance -675 3220 1000 Meds/Results Medications: Active Medications Generic Name Dose Route Start Last Admin Trade Name Freq PRN Reason Stop Dose Admin Acetaminophen 650 mg 06/17/21 11:10 06/17/21 23:16 Acetaminophen 325 Mg Tablet PO 650 mg Q6H PRN Administration Mild Pain (1-3) or Fever Diphenhydramine HCl 25 mg 06/17/21 18
[2021-06-19] MEDS: KETOROLAC 15 MG/ML VIAL (*BKC) IV PUSH (11:18)
[2021-06-19] MEDS: LACTATED RINGERS 1,000 ML 125 ML IV CONT (11:22)
--- NOTE | 2021-06-19 12:20 | WPDGIPROGNO ---
Progress Note: A&P Additional Plan GI Sh[facility] for Dr. Reyes 19 Jun 2021 Patient c/o abdominal perdue, nausea and vomiting. 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 [facility] [phone] Subjective Date/time seen: 06/19/21 12:20 Objective Data Vital Signs Vital Signs: Vital Signs - 24 hr 06/18/21 14:00 06/18/21 14:05 06/18/21 20:00 Temperature 36.7 C Pulse Rate 63 71 Respiratory Rate 18 16 Blood Pressure 112/69 Pulse Oximetry 100 98 99 06/18/21 22:00 06/19/21 06:00 06/19/21 08:00 Temperature 36.3 C L 36.1 C L Pulse Rate 71 77 77 Respiratory Rate 16 18 18 Blood Pressure 119/68 115/63 Pulse Oximetry 99 99 99 Intake/Output Intake/Output: Intake & Output 06/16/21 06/17/21 06/18/21 06/19/21 23:59 23:59 23:59 23:59 Intake Total 375 4500 1000 Output Total 1050 1280 Balance -675 3220 1000 Meds/Results Medications: Active Medications Generic Name Dose Route Start Last Admin Trade Name Freq PRN Reason Stop Dose Admin Acetaminophen 650 mg 06/17/21 11:10 06/17/21 23:16 Acetaminophen 325 Mg Tablet PO 650 mg Q6H PRN Administration Mild Pain (1-3) or Fever Diphenhydramine HCl 25 mg 06/17/21 18:41 06/17/21 20:30 Diphenhydramine Hcl Inj 50 Mg/Ml Vial IV PUSH 25 mg Q6HR PRN Administration Itching Lactated Ringer's 1,000 mls @ 125 mls/hr 06/17/21 07:40 06/19/21 11:22 Lr - Lactated Ringers Iv IV CONT 125 mls/hr .Q8H RYAN Administration Levetiracetam 500 mg in 100 mls @ 400 mls/hr 06/17/21 21:00 06/19/21 09:01 Keppra Iv IVPB 400 mls/hr Q12HR RYAN Administration Acetaminophen 1,000 mg in 100 mls @ 400 mls/hr 06/18/21 13:10 06/19/21 05:07 Ofirmev 1,000 Mg Ivpb IVPB 06/19/21 13:09 400 mls/hr Q6H PRN Administration Pain Rated 6-10 Lorazepam 0.5 mg 06/18/21 13:10 06/19/21 11:17 Lorazepam Inj (*Crx) 2 Mg/Ml Vial IV PUSH 0.5 mg Q6H PRN Administration Anxiety Nicotine 1 patch 06/19/21 13:48 06/18/21 15:47 Nicotine (*Pbkc) 14 Mg Patch TRANSDERM 1 patch QAM RYAN Administration Ondansetron HCl 4 mg 06/17/21 07:40 06/19/21 09:09 Ondansetron Inj 4 Mg/2 Ml Vial IV PUSH 4 mg Q4H PRN Administration Nausea Pantoprazole Sodium 40 mg 06/17/21 21:00 06/19/21 09:02 Pantoprazole Sodium Iv 40 Mg Vial IV PUSH 40 mg Q12HR RYAN Administration Radiology Results: ITS Impressions Head CT 06/17/21 07:04 IMPRESSION: 1. No acute intracranial abnormality. Cervical Spine CT 06/17/21 07:07 IMPRESSION: 1. No acute abnormality of the cervical spine. Chest X-Ray 06/17/21 08:25 IMPRESSION: 1: NO ACUTE CARDIOPULMONARY DISEASE. Abdomen/Pelvis CT 06/17/21 15:56 IMPRESSION: Distended stomach, duodenum and jejunum without discrete transition point. Appearance suggests ileus. Unremarkable ileum. Expected amount of colonic stool. Brain MRI 06/17/21 16:40 IMPRESSION: Unremarkable brain MRI examination. Abdomen X-Ray 06/18/21 06:41 IMPRESSION: NG tube in stomach Small Bowel X-Ray 06/19/21 11:10 IMPRESSION: 1. Dilation of the duodenum with transition point as evidenced on CT at the midline where it passes between the aorta and superior mesenteric artery without delayed passage of contr
[2021-06-19 14:00] VITALS: BP 120/74; PULSE 68; RESP 16; TEMP 36.8; O2SAT 99
--- NOTE | 2021-06-19 15:30 | PC.NURSE ---
This nurse was made aware that patient visitor was bringing in multiple bags of belongings for the patient. This nurse notified security. This nurse along with two other nurses went through belongings of patient with security and three other nurses. Drug paraphernalia noted and an unknown substance. steel floor pan placing supervisor made aware. Patient visitor noted to throw them in the trash. Security apprehended said belongings. Upon leaving, visitor attempted to give patient a glass pipe. Glass pipe apprehended and given to security. Patient's visitors belongings gathered and left with security walking to front entrance.
--- NOTE | 2021-06-19 15:55 | PC.NURSE ---
Patient found wandering in halls requesting IV to be removed and wants to leave AMA. Provider made aware. Provider noted patient can leave AMA. Risks explained to patient. Patient alert and oriented and voiced understanding risks and continues to want to leave AMA. IV removed per floor nurse. AMA form signed. Patient walked off of floor at 1540.
[2021-06-22 23:39] LABS: ANCA Screen Negative (Negative); Myeloperoxidase Ab <1.0 AI (<1.0); Proteinase-3 Ab <1.0 AI (<1.0); S cerevisiae Ab (IgA) 2.9 U (<=20.0); S cerevisiae Ab (IgG) 2.2 U (<=20.0)
== END 2021-06-19 15:40 | disposition left against medical advice (07) | DRG 53 ==
LOC: ANHED 07:59 → ANH3MEDSUR 09:24
PROVIDERS: Admitting Provider Internal Medicine; Emergency Provider Emergency Medicine; Visit Provider Internal Medicine
DX: G40.409 Other generalized epilepsy and epileptic syndromes, not intractable, without status epilepticus (principal); K55.1 Chronic vascular disorders of intestine; K50.90 Crohn's disease, unspecified, without complications; E86.0 Dehydration; Z20.822 Contact with and (suspected) exposure to COVID-19; F17.210 Nicotine dependence, cigarettes, uncomplicated; Z91.19 Patient's noncompliance with other medical treatment and regimen; Z85.41 Personal history of malignant neoplasm of cervix uteri; Z90.49 Acquired absence of other specified parts of digestive tract
CPT/HCPCS: 36415; 70450; 70553; 71045; 72125; 74177; 74250; 80053; 80069; 80074; 80307; 81001; 83735; 84443; 84702; 85025; 85652; 86036; 86140; 86592; 86671; 86703; 95816; 96361; 96365; 96366; 96367; 96374; 96375; 96376; 99285; A9270; A9577; C9113; C9803; G0378; G0379; G0432; J0131; J1200; J1885; J1953; J2060; J2270; J2405; J2550; J7030; J7120; J7512; Q9967; U0003; U0005